=== PATIENT | female | born 1950 | race Caucasian/White ===

== ENCOUNTER 2024-03-26 21:45 | Emergency (ER) | payer MEDICARE, SELFPAY ==
[2024-03-26 21:57] VITALS: BP 128/66; PULSE 74; RESP 18; TEMP 36.6; O2SAT 97; BMI 33.2
--- NOTE | 2024-03-27 01:46 | ED_ITS ---
HPI - Wound/Laceration General Chief Complaint: Wound/Laceration Stated Complaint: cut middle finger Time Seen by Provider: 03/27/24 00:45 Source: patient Mode of arrival: Ambulatory History of Present Illness HPI narrative: 74-year-old female who cut her on her left hand. She states she was washing dishes heard water running and spilling over the counter top, she went to wipe with her finger and cut her finger on a piece of glass that was underneath their distract. They note that they did have a carafe that broke about a week or 2 ago and likely was a piece leftover from this. Patient does not have any numbness tingling or weakness. States it did not bleed quite a bit initially. Denies any other injuries. States tetanus is up-to-date. Related Data Allergies Allergy/AdvReac Type Severity Reaction Status Date / Time latex Allergy Verified 03/27/24 02:32 Penicillins Allergy Anaphylaxis Verified 03/27/24 02:32 Review of Systems Review of Systems ROS Unobtainable: All systems reviewed & are unremarkable except as noted in HPI and below Patient History Social History Smoking Status: Never smoker Smoking Status: Never smoker alcohol intake frequency: holidays/special occasions only Substance Use Type: does not use Exam Narrative Exam Narrative: GENERAL: Alert and oriented x three, female in mild distress HEENT: Head normocephalic, atraumatic, EOMI, pupils reactive, face symmetric, moist mucous membranes NECK: Supple, full range of motion EXTREMITIES: Normal range of motion, no clubbing or edema. Neurovascularly intact. Patient has a laceration to the distal pad of the 3rd finger on the left finger the volar side. Proximally 0.5 cm, it does gape quite a bit. Subcutaneous tissues exposed. The nail is not involved. Cap refills less than 2 seconds in all 5 fingers. Normal range of motion, no bony tenderness. No foreign body appreciated. NEUROLOGICAL: Cranial nerves II through XII grossly intact. Moving all extremities SKIN: Warm, dry, no petechiae, no rashes or lesions. Initial Vital Signs Initial Vital Signs: Vital Signs Temperature 97.8 F 03/26/24 21:57 Pulse Rate 74 03/26/24 21:57 Respiratory Rate 18 03/26/24 21:57 Blood Pressure 128/66 03/26/24 21:57 Pulse Oximetry 97 03/26/24 21:57 Oxygen Delivery Method Room Air 03/26/24 21:57 Procedures Laceration Repair Laceration 1: Site: hand (3rd finger) Side (If applicable): left Size (cm): 0.5 Description: linear and clean Depth: simple, single layer Local Anesthetic: lidocaine 2% Amount of anesthesia used (mL): 1.5 Pre-repair: wound explored, irrigated extensively and deep structures intact Skin layer closed with: nylon Skin layer suture size: 5-0 Number of sutures: 3 Technique: simple, interrupted Course Orders Ordered: Discontinued Medications Bacitracin (Bacitracin Oint 0.9 Gm Pckt) 1 applic TOP NOW ONE Stop: 03/27/24 02:32 Last Admin: 03/27/24 02:35 Dose: 1 applic Documented By: OCHOA Vital Signs Vital signs: Vital Signs - 8 hr 03/26/24 21:57 03/27/24 02:37 Temperature 97.8 F Pulse Rate 74 56 L Respiratory Rate 18 18 Blood Pressure 128/66 144/63 H Pulse Oximetry 97 96 Oxygen Delivery Method Room Air Room Air MDM - Wound/Laceration MDM Narrative Medical decision making narrative: 74-year-old female with laceration to her 3rd finger on her middle hand for a piece of broken glass that was sitting on her countertop when she slept her hand across the countertop to clean up water. Fairly superficial but does gape quite a bit on the distal end of the finger. Would not heal well without suturing. Patient gave verbal consent and patient had suture repair with 3 sutures total. Reviewed wound care directions, return precautions. All questions answered. Discharge Plan Departure Patient Disposition: Home Clinical Impression: Finger laceration Instructions: DI for Laceration Repair Activity Restrictions/Additional Instructions: Wound Care: Keep wound(s) clean and dry. Wash daily with soap and water only. Do not use over the counter products (alcohol or peroxide)on the wounds unless instructed by a physician. You can use triple antibiotic ointment to the affected area 1-2 times daily. If wound condition worsens (increased/expanding redness, developing fluid blisters, or worsening pain), either contact your doctor for an urgent re- assessment , or return to the Emergency Department. Return to the Emergency Department for any new or worsening symptoms. Return to the ED, urgent care, or visit a primary care doctor for removal or suture or kd. Your appointment next with your primary care physician would be an excellent time to have your sutures removed. Return if fever greater than 100.4 Fahrenheit, increased swelling, increasing pain or worsening symptoms such as increased discharge or spreading redness. Stand Alone Forms: Patient Portal/API
[2024-03-27] MEDS: BACITRACIN OINT 0.9 GM PCKT 1 APPLIC TOP (02:35)
[2024-03-27 02:37] VITALS: BP 144/63; PULSE 56; RESP 18; O2SAT 96
== END 2024-03-27 02:40 | disposition home or self-care (01) ==
PROVIDERS: Emergency Provider Emergency Medicine
DX: S61.213A Laceration without foreign body of left middle finger without damage to nail, initial encounter (principal); W25.XXXA Contact with sharp glass, initial encounter
CPT/HCPCS: 12001; 99283